=== PATIENT | female | born 1995 | race American Indian/Alaskan Native ===

== ENCOUNTER 2020-09-05 18:06 | Emergency (ER) | payer SELFPAY ==
[2020-09-05 18:39] VITALS: BP 133/86
--- NOTE | 2020-09-05 19:54 | Emergency Department Report ---
Chief Complaint: Eye Problems Stated Complaint: EYE SWELLING/FACE SWELLING - HPI History of Present Illness: 25-year-old -[place] female presents to the emergency room for right eye irritation times today. 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 Patient denies any blurred vision, no drainage no pain. She reports is just swelling on her upper eyelid with irritation. Patient reports that it just itches. She denies using any contacts. - Exam Vital Signs: Vital Signs 09/05/20 18:38 Temperature 98.2 F Pulse Rate 85 Respiratory 20 Rate Blood Pressure 133/86 O2 Sat by Pulse 100 Oximetry Physical Exam: Alert and oriented x3 no acute distress nontoxic in appearance Right eye pupils are equal round and reactive to light. EOMI intact. Conjunctiva without erythematous without drainage and swelling. Right upper eyelid mild puffiness nonerythematous. Nonlabored breathing no accessory muscles use Ambulatory without difficulties. MSE screening note: Focused history and physical exam performed. Due to findings the following was ordered: 25-year-old -[place] female presents to the emergency room for right eye irritation times today. 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 Patient denies any blurred vision, no drainage no pain. She reports is just swelling on her upper eyelid with irritation. Patient reports that it just itches. She denies using any contacts. Recommend Zaditor Claritin follow-up with an floor framer or primary care provider. ED Disposition for MSE Disposition: MED SCREENING EXAM-LEFT Is pt being admited?: No Does the pt Need Aspirin: No Condition: Stable Additional Instructions: Recommend taking [id number] Zaditor. Also you can take Zyrtec/Claritin. Follow-up with a primary care provider I have listed 1 below for your convenience. Referrals: LISA SYED MD [Staff Physician] - 3-5 Days MICHELLE ALVAREZ MD [Staff Physician] - 3-5 Days Forms: Work/School Release Form(ED)
== END 2020-09-05 21:23 | disposition left against medical advice (07) ==
LOC: ED 18:06
DX: R22.9 Localized swelling, mass and lump, unspecified (principal); Z53.21 Procedure and treatment not carried out due to patient leaving prior to being seen by health care provider